=== PATIENT | male | born 1960 | race Caucasian/White ===

== ENCOUNTER → 2016-11-25 | Outpatient (CLI) | payer BC ==
[~2016-11-25] MED LIST: PERFLUTREN LIPID MICROSPHERE (DEFINITY) IV ONE
--- NOTE | 2016-11-25 17:31 | EXERCISE STRESS ECHO ---
*NOTICE TO RECEIVING REPUBL[employer] AGENCY This information is strictly Confidential and protected under [place] law. [place] law prohibits you from making any further disclosure of this information unless further disclosure is expressly permitted by the written consent of the person to whom it pertains or is authorized by law. A general authorization for the release of medical or other information is not sufficient for this purpose. Hospital accepts no responsibility if the information is made available to any other person, INCLUDING THE PATIENT. Interpretation Summary * Name: TRISHA DARBY Study Date: 11/25/2016 09:03 AM BP: 152/105 mmHg * Patient Location: [facility] HR: 86 * : 1960 (M/d/yyyy) Gender: Male Height: 73 in * Age: 55 yrs Ethnicity: [place] Weight: 250 lb * Ordering Physician: Janny Vasquez * Referring Physician: Janny Vasquez PA-C * Performed By: Pat Morris RDCS * * Reason For Study: PVC'S * BSA: 2.4 m2 * -- Conclusions -- * Stress Echo: * 1. No ischemic changes noted at 78% MPHR on stress echo imaging. Cannot rule out ischemic changes at faster heart rates. Target heart rate was not attained. * 2. Nondiagnostic exercise ECG as target heart rate was not attained. * 3. No arrhythmia. PVCs resolved with faster heart rates. * 4. No chest pain reported. * 5. Mild hypertensive response to exercise. * 6. Technically difficult study, enhanced with IV Definity. * Echo: * 1. Normal left ventricular size and systolic function. EF 60-65%. No regional wall motion abnormalities. Mild left ventricular hypertrophy. Type 1 diastolic dysfunction. * 2. Sclerotic aortic valve without significant stenosis. Procedure Details * A contrast injection of Definity was performed to improve assessment of LV function. * Contrast was injected into an intravenous site in the right arm. * One vial of Definity ultrasound contrast was diluted in normal saline to a total volume of 10 ml. A total of '4' ml of solution was administered during imaging. * Lot # [id number] of Definity utilized for procedure. * Expiration date JAN 27. * The attending nurse who injected the contrast agent was STEPHANIE RODRÍGUEZ RN. Left Ventricle * The left ventricle is normal in size. * There is mild concentric left ventricular hypertrophy. * Ejection Fraction = 60-65%. * Left ventricular systolic function is normal. * Resting wall motion: Normal. Stress wall motion: Appropriate increase in Left ventricular systolic function and decrease in cavity size. No stress induced segmental wall motion abnormalities. * The left ventricular ejection fraction increases normally with stress. The left ventricular end-systolic cavity size reduces post-stress (normal response). The left ventricular wall motion with stress is normal. * No regional wall motion abnormalities noted. Right Ventricle * The right ventricle is normal in size and function. * The right ventricular systolic function is normal as assessed by tricuspid annular plane systolic excursion (TAPSE) (normal >1.5 cm). Atria * The left atrium is moderately dilated. * Right atrial size is normal. * There is no evidence of atrial septal defect, but resolution does not allow assessment for a patent foramen ovale. Mitral Valve * The mitral valve is grossly normal. * There is no mitral valve stenosis. * There is trace mitral regurgitation. Tricuspid Valve * The tricuspid valve is not well visualized, but is grossly normal. * There is no tricuspid stenosis. * There is trace tricuspid regurgitation. Aortic Valve * The aortic valve is trileaflet. * Aortic valve sclerosis mild, without significant aortic valvular stenosis. * No aortic regurgitation is present. Pulmonic Valve * The pulmonary valve is inadequately visualized, but the Doppler data is adequate for interpretation. * There is no significant pulmonary regurgitation. Great Vessels * The aortic root is normal size. * Aortic arch of normal dimension. * Ascending aorta of normal dimension Pericardium * There is no pericardial effusion. Stress Parameters * Sinus rhythm with frequent PVCs. * 0.5-[address] depression in lead II. * No arrhythmia were noted with stress. * Rest heart rate was '86' BPM. * Rest blood pressure was '152/105' * Maximum heart rate achieved was 130 bpm. * Maximum heart rate was 78 % of maximum age-predicted heart rate. * Maximum blood pressure was '218/107' * Total exercise time was '6:49' * Maximum exercise MET level achieved was '8.20' METS * Maximum treadmill speed was '3.40' miles per hour. * Maximum treadmill elevation was '14.00'% grade. * Exercise was terminated due to 'FATIGUE, LEGS' MMode 2D Measurements and Calculations IVSd 1.1 cm IVSs 1.9 cm LVIDd 4.9 cm LVIDs 3.3 cm LVPWd 1.2 cm LVPWs 2.3 cm IVS/LVPW 0.97 FS 32.5 % EDV(Teich) 111.9 ml ESV(Teich) 43.9 ml EF(Teich) 60.7 % EDV(cubed) 116.4 ml ESV(cubed) 35.7 ml EF(cubed) 69.3 % % IVS thick 71.7 % % LVPW thick 96.8 % LV mass(C)d 210.9 grams LV mass(C)dI 89.1 grams/m\S\2 LV mass(C)s 324.4 grams LV mass(C)sI 137.1 grams/m\S\2 SV(Teich) 68.0 ml SI(Teich) 28.7 ml/m\S\2 SV(cubed) 80.7 ml SI(cubed) 34.1 ml/m\S\2 Ao root diam 3.6 cm Ao root area 9.9 cm\S\2 LA dimension 3.5 cm asc Aorta Diam 3.3 cm LA/Ao 0.98 LVAd ap4 41.4 cm\S\2 LVLd ap4 10.2 cm EDV(MOD-sp4) 138.8 ml EDV(sp4-el) 142.7 ml LVAs ap4 22.5 cm\S\2 LVLs ap4 8.3 cm ESV(MOD-sp4) 51.0 ml ESV(sp4-el) 51.9 ml EF(MOD-sp4) 63.2 % EF(sp4-el) 63.6 % SV(MOD-sp4) 87.8 ml SI(MOD-sp4) 37.1 ml/m\S\2 SV(sp4-el) 90.8 ml SI(sp4-el) 38.4 ml/m\S\2 Doppler Measurements and Calculations MV E max amparo 81.9 cm/sec MV A max amparo 99.2 cm/sec MV E/A 0.83 MV dec time 0.25 sec Ao V2 max 119.9 cm/sec Ao max PG 5.7 mmHg Ao max PG (full) 1.7 mmHg LV V1 max PG 4.1 mmHg LV V1 max 100.9 cm/sec TR max amparo 219.1 cm/sec
== END | disposition home or self-care (01) ==
LOC: C.CPL 08:31
PROVIDERS: ATTEND Physician Assistant
DX: I49.3 Ventricular premature depolarization (principal)